=== PATIENT | female | born 1980 | race Caucasian/White ===

== ENCOUNTER 2017-02-19 20:27 | Emergency (ER) | payer BC ==
--- OUTSIDE RECORDS SUMMARY | 2017-02-19 20:30 | XMS | Clinical Summary ---
:1980 Author Organization [facility] Address [address] [place] [address] Phone Care Team Providers Name Role Phone , Primary Care Provider Unavailable Allergies No Known Allergies Current Medications Prescription Sig. Disp. Refills Start Date End Date Status cholecalciferol, Take 1,000 Units by Active vitamin D3, 1,000 unit mouth daily. capsule progesterone Place vaginal 30 each 12 09/23/2016 Active (ENDOMETRIN) 100 mg suppository (300 mg) vaginal insert every night.. Active Problems Problem Noted Date Amenorrhea 09/23/2016 Cyst of right ovary 08/15/2015 Pelvic pain in female 08/15/2015 PMS (premenstrual syndrome) 08/15/2015 Encounters Date Type Specialty Care Team Description 02/06/2017 Orders Only Obstetrics and Gynecology Cierra Burnette MD 01/17/2017 Telephone Obstetrics and Gynecology Cierra Burnette Advice Only 01/16/2017 Orders Only Obstetrics and Gynecology Cierra Burnette MD 12/19/2016 Orders Only Obstetrics and Gynecology Cierra Burnette MD 11/19/2016 Orders Only Obstetrics and Gynecology Cierra Burnette MD from Last 3 Months Family History Medical History Relation Name Comments Hypertension Father Colon cancer Maternal Grandmother Relation Name Status Comments Father Maternal Grandmother Social History Tobacco Use Types Packs/Day Years Used Date Never Smoker Alcohol Use Drinks/Week oz/Week Comments Yes Sex Assigned at Date Recorded Not on file Last Filed Vital Signs Vital Sign Reading Time Taken Blood Pressure 112/74 06/03/2016 11:05 AM [employer] Pulse 77 06/03/2016 11:05 AM [employer] Temperature 36.6 C (97.9 F) 06/03/2016 11:05 AM [employer] Respiratory Rate - - Oxygen Saturation - - Inhaled Oxygen Concentration - - Weight 80.3 kg (177 lb) 06/03/2016 11:05 AM [employer] Height 160 cm (5' 3") 06/03/2016 11:05 AM [employer] Body Mass Index 31.35 06/03/2016 11:05 AM [employer] Plan of Treatment Health Maintenance Due Date Last Done Comments INFLUENZA VACCINE 01/19/2017 Results Progesterone (02/06/2017 8:42 AM)Only the most recent of4 resultswithin the time period is included. Component Value Ref Range Progesterone 44.8 ng/mL Comment: Follicular phase 0.1 - 0.9 Luteal phase 1.8 -23.9 Ovulation phase0.1 - 12.0 First .0 - 44.3 Second trimester 25.4 - 83.3 Third qbrqzjfgo29.7 - 214.0 Postmenopausal 0.0 - 0.1 Specimen Performing Laboratory [facility] Narrative Performed at:01 - [id number] Sales Enablement Lead: Gagan Lara MD, Phone:[phone] from Last 3 Months
[2017-02-19 20:56] LABS: #Lymphocytes 0.8 thou/uL (1.20-3.40); #Monocytes 0.6 thou/uL (0.11-0.59); #Neutrophils 14.7 thou/uL (1.40-6.50); %Basophils 0.2 % (0.0-1.0); %Eosinophils 0.3 % (0.0-10.0); %Lymphocytes 4.8 % (21.0-51.0); %Monocytes 3.7 % (0.0-10.0); Hematocrit 34.9 % (36.0-47.0); Mean Platelet Volume 6.7 fL (7.4-10.4); Red Blood Cell (RBC) Count 4.08 mill/uL (4.20-5.40); White Blood Cell (WBC) Count 16.1 thou/uL (4.8-10.8)
[2017-02-19 21:11] LABS: ALT (SGPT) 18 U/L (8-55); AST (SGOT) 19 U/L (5-34); Alkaline Phosphatase 74 U/L (40-150); Anion Gap 13 mmol/L (10-20); BUN (Urea Nitrogen) 10 mg/dL (7.0-18.7); Bilirubin, Total 0.3 mg/dL (0.2-1.2); Calc. Creatinine Clearance 0 mL/min (70-130); Calcium 8.1 mg/dL (7.8-10.44); Carbon Dioxide 22 mmol/L (22-29); Chloride 110 mmol/L (98-107); Estimated GFR-MDRD Greater than 90; Globulin 2.7 g/dL (2.4-3.5); Lipase 9 U/L (8-78); Protein, Total 5.8 g/dL (6.0-8.3)
== END 2017-02-19 21:48 | disposition home or self-care (01) ==
LOC: SCSER 20:27
DX: O09.512 Supervision of elderly primigravida, second trimester (principal); O98.812 Other maternal infectious and parasitic diseases complicating pregnancy, second trimester; A08.4 Viral intestinal infection, unspecified; O99.342 Other mental disorders complicating pregnancy, second trimester; F32.9 Major depressive disorder, single episode, unspecified; Z79.899 Other long term (current) drug therapy; Z3A.25 25 weeks gestation of pregnancy
CPT/HCPCS: 80053; 83690; 85025; 99284

== ENCOUNTER 2017-05-30 10:44 | Inpatient (IN) | payer BC ==
[2017-06-01] MEDS ORDERED: Acetaminophen 500 MG TAB PO PRN (23:40)
[2017-06-01] MEDS ORDERED: Lidocaine 1% (PF) 30 ML VIAL SC PRN (23:40)
[2017-06-01] MEDS ORDERED: Ibuprofen 800 MG TAB PO PRN (23:40)
[2017-06-01] MEDS ORDERED: LR 500 ML/Oxytocin 10 units 500 ML IV SCH (23:40)
[2017-06-01] MEDS ORDERED: Methylergonovine 0.2 MG/ML VIAL IM PRN (23:40)
[2017-06-01] MEDS ORDERED: LR / Pitocin 40 units/1000 ml 1,000 ML IV PRN (23:40)
[2017-06-01] MEDS ORDERED: Misoprostol 200 MCG TAB PR PRN (23:40)
[2017-06-01] MEDS ORDERED: Promethazine HCl 25 MG/ML VIAL IM PRN (23:40)
[2017-06-01] MEDS ORDERED: Zolpidem Tartrate 5 MG TAB PO PRN (23:40)
[2017-06-01] MEDS ORDERED: Acetaminophen/Codeine 30-300mg Tablet PO PRN (23:40)
[2017-06-01] MEDS ORDERED: HYDROcodone/Acetaminophen 5/325 mg Tablet PO PRN (23:40)
[2017-06-01 23:55] VITALS: BMI 36.6
[2017-06-02] MEDS: Lactated Ringer's 1,000 ML IV SCH ×6 (00:18→22:37)
[2017-06-02 00:25] LABS: Hemoglobin 12.7 g/dL (12.0-16.0); Mean Corpuscular HGB CONC 33.5 g/dL (32.0-36.0); Mean Corpuscular Hemoglobin 28.9 pg (27.0-31.0); Mean Corpuscular Volume 86.3 fl (81.0-99.0); Mean Platelet Volume 7.4 fL (7.4-10.4); Platelet Count 236 thou/uL (130-400); RBC Distribution Width 12.7 % (11.5-14.5); Red Blood Cell (RBC) Count 4.39 mill/uL (4.20-5.40); White Blood Cell (WBC) Count 17.2 thou/uL (4.8-10.8)
[2017-06-02 01:05] LABS: HBSAg Index 0.16 S/CO (0-0.99); Hep B Surf Ag Non-Reactive S/CO (NonReactive); Syphilis Antibody Nonreactive (Nonreactive); Syphilis Antibody Index 0.03 S/CO (<1.00 Non-Reactive)
--- NOTE | 2017-06-02 02:33 | PDOC.EVN ---
Event Note - Event Note Event Note: Please see full handwritten note in patients chart. L&D note: Asked to eval patient for possible cook balloon. Cervical balloon requested by Dr Margie Alston. On speculum exam, cervix very anterior and difficult to locate os (also with redundant sidewalls.) On exam, apperas to have white dsch with amine odor, possibly BV. I asked the patient regarding dsch and she has noted some. Due to cx position (anterior and slightly deviated) and possible BV, I discussed with her that I will hold on ( defer) balloon placement at this time. Patient understands.
[2017-06-02] MEDS: Misoprostol 100 MCG TAB VAG SCH ×4 (03:00→18:19)
[2017-06-02] MEDS: Ondansetron HCl/PF 4 MG/2 ML Vial IVP PRN ×2 (07:15→12:49)
[2017-06-02] MEDS ORDERED: Bupivacaine 0.5% 20 ML, Fentanyl 400 MCG in Sodium Chloride 0.9% 72 ML EPIDURAL SCH (12:15)
[2017-06-02] MEDS: ePHEDrine/0.9% NaCl/PF SYRINGE 50 mg/10 ml SLOW IVP PRN ×2 (12:51→14:18)
[2017-06-02] MEDS: Fentanyl 4mcg/Marcaine 0.1% Cassette 100 ML EPIDURAL SCH (12:55)
[2017-06-02] MEDS ORDERED: Naloxone HCl 0.4 mg/ml Vial IVP PRN ×2 (13:04)
[2017-06-02] MEDS ORDERED: diphenhydrAMINE 50 MG/ML VIAL IVP PRN (13:04)
[2017-06-02] MEDS ORDERED: Promethazine HCl 25 MG/ML VIAL IM PRN (13:04)
[2017-06-02] MEDS ORDERED: Eucerin (Mineral Oil/Petrolatum,White) 30 gm Jar TOP PRN (13:04)
[2017-06-02] MEDS ORDERED: Acetaminophen 325 MG TAB PO PRN (13:04)
[2017-06-02] MEDS ORDERED: Lactated Ringer's 500 ML IV PRN (13:04)
[2017-06-02] MEDS ORDERED: Ondansetron HCl/PF 4 MG/2 ML Vial IVP PRN ×2 (13:04→13:15)
[2017-06-02] MEDS ORDERED: Communication Order-Pharmacy FS SCH (13:15)
[2017-06-03] MEDS: Lactated Ringer's 1,000 ML IV SCH ×2 (05:38→17:29)
[2017-06-03] MEDS ORDERED: LR 500 ML/Oxytocin 10 units 500 ML IV SCH (06:00)
[2017-06-03] MEDS: Fentanyl 4mcg/Marcaine 0.1% Cassette 100 ML EPIDURAL SCH (06:35)
[2017-06-03] MEDS: ePHEDrine/0.9% NaCl/PF SYRINGE 50 mg/10 ml SLOW IVP PRN (06:37)
[2017-06-03] MEDS ORDERED: Bicitra 30 ML UDCUP ONE (07:41)
[2017-06-03] MEDS ORDERED: CEFAZOLIN/Water 2 GM/20 ML SYRINGE ONE (07:41)
[2017-06-03] MEDS ORDERED: Ondansetron HCl/PF 4 MG/2 ML Vial ONE ×2 (07:50→14:52)
[2017-06-03] MEDS ORDERED: PHENYLEPHRINE-NS 100 MCG/ML 10 ML SYRINGE ONE ×2 (07:50→14:52)
[2017-06-03] MEDS ORDERED: ePHEDrine/0.9% NaCl/PF SYRINGE 50 mg/10 ml ONE ×2 (07:50→17:41)
[2017-06-03] MEDS ORDERED: Oxytocin 10 UNITS/ML VIAL ONE ×2 (07:50→08:55)
[2017-06-03] MEDS ORDERED: Bupivacaine PF 0.5% 30 ML VIAL ONE (07:50)
[2017-06-03] MEDS ORDERED: CEFAZOLIN/Water 2 GM/20 ML SYRINGE SLOW IVP SCH (08:00)
[2017-06-03] MEDS ORDERED: Bicitra 30 ML UDCUP PO SCH (08:00)
[2017-06-03] MEDS ORDERED: Ketorolac Tromethamine 30 MG/ML VIAL ONE ×2 (08:36→14:52)
[2017-06-03] MEDS ORDERED: Fentanyl 100 MCG/2 ML VIAL ONE (08:42)
[2017-06-03] MEDS ORDERED: Morphine PF 1 MG/ML SYR ONE (08:50)
[2017-06-03] MEDS ORDERED: Promethazine HCl 25 MG/ML VIAL IM PRN ×2 (09:19→12:22)
[2017-06-03] MEDS ORDERED: Ondansetron HCl/PF 4 MG/2 ML Vial IVP PRN ×2 (09:19→12:22)
[2017-06-03] MEDS ORDERED: Eucerin (Mineral Oil/Petrolatum,White) 30 gm Jar TOP PRN (09:19)
[2017-06-03] MEDS ORDERED: Naloxone HCl 0.4 mg/ml Vial IVP PRN ×2 (09:19)
[2017-06-03] MEDS ORDERED: Meperidine HCl/PF 25 MG/ML VIAL SLOW IVP PRN (09:19)
[2017-06-03] MEDS ORDERED: Promethazine HCl 25 MG SUPP PR PRN (09:19)
[2017-06-03] MEDS ORDERED: HYDROmorphone 2 MG/ML VIAL SLOW IVP PRN (09:19)
[2017-06-03] MEDS ORDERED: diphenhydrAMINE 50 MG/ML VIAL IVP PRN (09:19)
[2017-06-03] MEDS ORDERED: Naloxone HCl 0.4 mg/ml Vial IV PRN (09:19)
[2017-06-03] MEDS ORDERED: Communication Order-Pharmacy FS SCH (09:30)
--- NOTE | 2017-06-03 10:00 | OP ---
DATE OF PROCEDURE: 06/03/2017 PREOPERATIVE DIAGNOSES: Post-date intrauterine with nonreassuring heart tones. POSTOPERATIVE DIAGNOSES: Post-date intrauterine with nonreassuring heart tones, stat us post delivery. PROCEDURE: Primary low transverse section. SURGEON: Oliva Alston M.D. CLINICAL CARE COORDINATOR: West Diaz, medical student III. ANESTHESIA: Epidural. COMPLICATIONS: No complications. PROCEDURE IN DETAIL: The patient taken to the operating room secondary to repetitive late decelerati ons with contractions, which resolved with Pitocin off, but noted no progression with cervical change . The patient was stable at the time, taken to the operating room and placed in the supine position. A wedge was placed under her right flank. The abdomen was prepped and draped in the usual sterile technique. It was noted that a Palma catheter and epidural anesthetic were in place. The patient wa s tested and noted to be without pain or discomfort. A Pfannenstiel incision was made in the inferio r aspect of the abdomen. Subcutaneous tissue was opened with sharp dissection. Fascia was opened wi th sharp dissection. Peritoneum opened with sharp and blunt dissection, it was noted that the abdome n was filled with a gravid uterus. A large Dallin O retractor was placed without difficulty and a lo w transverse incision was made on the uterus. A small amount of clear fluid was encountered. A viab le was delivered from vertex presentation. The infant breathed and cried spontaneously. The cord was allowed to pulse to approximately 30 seconds as the infant had good color and respirations. Cord was then clamped and cut and infant was handed to care of the neonatology team. Placenta was d elivered manually and appeared intact. A wet lap was used to wipe clean the uterus. There was no re maining placental fragments, ring forceps were used to grasp the edges of the hysterotomy and the hys terotomy was then closed in continuous fashion using 0 Monocryl. A second layer of imbrication was a lso placed on the uterus. Hemostasis was adequate. Gutters were checked. There was no bleeding. T he Dallin O retractor was removed and the peritoneum was then closed in continuous fashion using 2-0 Vicryl. A fascia was closed in continuous fashion using 0 Vicryl. Sponge and instrument counts were correct. Three interrupted sutures of 2-0 plain were placed to approximate the subcutaneous tissue and the skin was then closed with 4-0 Monocryl in a subcuticular fashion. Sponge and instrument coun ts were then correct. The patient tolerated the procedure well to go to the recovery room in good co ndition. The baby is a viable male , weight 8 pounds, 5 ounces, Apgars 8 at 1 minute and 9 at 5 minutes, to go to level 1 nursery in good condition.
[2017-06-03] MEDS ORDERED: Misoprostol 200 MCG TAB ONE (10:45)
[2017-06-03] MEDS ORDERED: Meperidine HCl/PF 25 MG/ML VIAL ONE (11:06)
--- NOTE | 2017-06-03 11:55 | OP ---
ADDENDUM DATE OF SERVICE: 06/03/2017 I was present and scrubbed to assist the uncomplicated primary low transverse with Dr. Oliva Alston. Please see her note for full details.
[2017-06-03] MEDS ORDERED: Misoprostol 200 MCG TAB PR SCH (12:22)
[2017-06-03] MEDS ORDERED: Bisacodyl 10 MG SUPP PR PRN (12:22)
[2017-06-03] MEDS ORDERED: Lanolin Ointment 7 GM TUBE TOP PRN (12:22)
[2017-06-03] MEDS ORDERED: Simethicone Chewable 80 MG TAB PO PRN (12:22)
[2017-06-03] MEDS ORDERED: Methylergonovine 0.2 MG/ML VIAL IM PRN (12:22)
[2017-06-03] MEDS ORDERED: Docusate Calcium (SURFAK) 240 MG CAP PO SCH (12:22)
[2017-06-03] MEDS ORDERED: Ferrous Sulfate 325 MG TAB PO SCH (12:22)
[2017-06-03] MEDS ORDERED: Acetaminophen 325 MG TAB PO PRN (12:22)
[2017-06-03] MEDS ORDERED: Prenatal Vitamin 1 TAB PO SCH (12:22)
[2017-06-03] MEDS: Ketorolac Tromethamine 30 MG/ML VIAL IVP PRN ×2 (13:40→20:08)
[2017-06-03] MEDS: Acetaminophen 1,000 MG in Premix Bag 1 BAG IVPB PRN ×2 (14:25→21:48)
[2017-06-03] MEDS: Ibuprofen 800 MG TAB PO SCH ×2 (14:26→23:33)
[2017-06-03] MEDS ORDERED: Dexamethasone 20 MG/5 ML VIAL ONE (14:52)
[2017-06-03] MEDS ORDERED: Lidocaine 1% PF 5 ML VIAL ONE (14:52)
[2017-06-03] MEDS ORDERED: Lidocaine 2% MPF 10 ML AMP (For Epidural Use) ONE ×2 (14:52→17:41)
[2017-06-03] MEDS ORDERED: Bupivacaine 0.25% HCL 30 ML VIAL ONE (17:41)
[2017-06-03] MEDS: Docusate Calcium (SURFAK) 240 MG CAP PO SCH (21:48)
[2017-06-03] MEDS: Ferrous Sulfate 325 MG TAB PO SCH (23:33)
[2017-06-04] MEDS: Lactated Ringer's 1,000 ML IV SCH (00:43)
[2017-06-04] MEDS: Ketorolac Tromethamine 30 MG/ML VIAL IVP PRN (04:44)
[2017-06-04 05:57] LABS: Hemoglobin 9.5 g/dL (12.0-16.0); Mean Corpuscular HGB CONC 33.4 g/dL (32.0-36.0); Mean Corpuscular Hemoglobin 29.7 pg (27.0-31.0); Mean Platelet Volume 7.7 fL (7.4-10.4); Platelet Count 170 thou/uL (130-400); RBC Distribution Width 12.7 % (11.5-14.5); Red Blood Cell (RBC) Count 3.18 mill/uL (4.20-5.40); White Blood Cell (WBC) Count 15.4 thou/uL (4.8-10.8)
[2017-06-04] MEDS: Ibuprofen 800 MG TAB PO SCH ×3 (07:40→19:46)
[2017-06-04] MEDS: Docusate Calcium (SURFAK) 240 MG CAP PO SCH ×2 (08:15→19:46)
[2017-06-04] MEDS: Ferrous Sulfate 325 MG TAB PO SCH ×2 (08:15→19:46)
[2017-06-04] MEDS: Prenatal Vitamin 1 TAB PO SCH (08:15)
[2017-06-04] MEDS: HYDROcodone/Acetaminophen 5/325 mg Tablet PO PRN ×2 (08:15→12:21)
[2017-06-04] MEDS: Acetaminophen/Codeine 30-300mg Tablet PO PRN ×2 (16:14→19:46)
[2017-06-04] MEDS: Misoprostol 100 MCG TAB VAG SCH (17:36)
[2017-06-05] MEDS: Acetaminophen/Codeine 30-300mg Tablet PO PRN ×2 (01:30→08:50)
[2017-06-05] MEDS: Ibuprofen 800 MG TAB PO SCH ×2 (06:11→14:07)
[2017-06-05 08:37] VITALS: BP 105/66; TEMP 97.7
[2017-06-05] MEDS: Prenatal Vitamin 1 TAB PO SCH (08:50)
[2017-06-05] MEDS: Ferrous Sulfate 325 MG TAB PO SCH (08:50)
[2017-06-05] MEDS: Docusate Calcium (SURFAK) 240 MG CAP PO SCH (08:50)
== END 2017-06-05 14:32 | disposition home or self-care (01) | DRG 766 ==
LOC: L&D 06-01 23:13 → 3SW 06-03 11:49
PROVIDERS: ADMIT Family Medicine; ATTEND Family Medicine
PROC: 3E033VJ Introduction of Other Hormone into Peripheral Vein, Percutaneous Approach (ICD-10-PCS; 2017-06-01)
PROC: 10907ZC Drainage of Amniotic Fluid, Therapeutic from Products of Conception, Via Natural or Artificial Opening (ICD-10-PCS; 2017-06-02)
PROC: 0U7C7ZZ Dilation of Cervix, Via Natural or Artificial Opening (ICD-10-PCS; 2017-06-02)
PROC: 10H07YZ Insertion of Other Device into Products of Conception, Via Natural or Artificial Opening (ICD-10-PCS; 2017-06-02)
PROC: 10D00Z1 Extraction of Products of Conception, Low, Open Approach (ICD-10-PCS; principal; 2017-06-03)
DX: O48.0 Post-term pregnancy (principal); O76 Abnormality in fetal heart rate and rhythm complicating labor and delivery; F41.1 Generalized anxiety disorder; O99.344 Other mental disorders complicating childbirth; Z3A.40 40 weeks gestation of pregnancy; Z37.0 Single live birth
CPT/HCPCS: 36415; 51702; 76815; 85027; 86780; 86850; 86900; 86901; 87340; C1726; J0131; J1100; J1200; J1885; J2001; J2175; J2274; J2405; J2590; J3010; J3490; J7050; J7120; S0020

== ENCOUNTER 2018-05-22 13:41 | Outpatient (CLI) | payer BC ==
--- NOTE | 2018-05-22 15:21 | ULT ---
ULTRASOUND RIGHT BREAST: Date: 05/22/18 INDICATION: Ultrasound of outer right breast performed to evaluate an area of tenderness in a lactating patient. FINDINGS: No sonographic abnormality identified. No evidence of galactocele. No evidence of mass or cyst. IMPRESSION: Ultrasound findings are BIRADS 1 - Negative. POS: [facility]
--- NOTE | 2018-05-22 15:23 | ULT ---
ULTRASOUND LEFT BREAST: Date: 05/22/18 INDICATION: Ultrasound of the outer left breast was performed to evaluate an area of tenderness and lumpiness not ed by the patient. The patient is lactating and . FINDINGS: No sonographic abnormality. No evidence of galactocele. No cyst or mass lesion seen. IMPRESSION: Ultrasound findings are BIRADS 1 - Negative. POS: [facility]
== END 2018-05-22 13:42 | disposition home or self-care (01) ==
LOC: BICULT 13:41
PROVIDERS: ATTEND Family Medicine
DX: N64.4 Mastodynia (principal)

== ENCOUNTER 2021-03-09 12:38 | Outpatient (CLI) | payer BC | END 2021-03-09 12:39 | disposition home or self-care (01) | LOC: ULT 12:38 | PROVIDERS: ATTEND Nurse Practitioner Family | DX: R20.0 Anesthesia of skin (principal); Z68.35 Body mass index [BMI] 35.0-35.9, adult ==

== ENCOUNTER 2021-03-19 13:29 | Outpatient (CLI) | payer BC | END 2021-03-19 13:30 | disposition home or self-care (01) | LOC: BICRAD 13:29 | PROVIDERS: ATTEND Nurse Practitioner Family | DX: F41.1 Generalized anxiety disorder (principal); R20.0 Anesthesia of skin; M47.816 Spondylosis without myelopathy or radiculopathy, lumbar region; Z68.35 Body mass index [BMI] 35.0-35.9, adult | CPT/HCPCS: 72100 ==

== ENCOUNTER 2021-08-28 12:30 | Outpatient (CLI) | payer BC | END 2021-08-28 12:31 | disposition home or self-care (01) | LOC: SCSMRI 12:30 | PROVIDERS: ATTEND Psychiatry & Neurology Neurology | DX: G35 Multiple sclerosis (principal); R20.2 Paresthesia of skin | CPT/HCPCS: 72156; 72157 ==

== ENCOUNTER 2022-11-12 17:30 | Outpatient (CLI) | payer BC | END 2022-11-12 17:31 | disposition home or self-care (01) | LOC: SLEEPLAB 17:30 | PROVIDERS: ATTEND Nurse Practitioner Family | DX: G47.33 Obstructive sleep apnea (adult) (pediatric) (principal); F41.9 Anxiety disorder, unspecified; E66.9 Obesity, unspecified; R06.83 Snoring | CPT/HCPCS: 95800 ==